=== PATIENT | male | born 1945 | race Caucasian/White ===

== ENCOUNTER 2017-08-23 07:26 | Day surgery (SDC) | payer MEDICARE, BC ==
[~2017-08-23 07:26] MED LIST: Metoclopramide 10 MG/2 ML SDV IV PRN; Sodium Chloride 0.9% 10 ML Syringe FLUSH PRN
[2017-08-23] MEDS ORDERED: Sodium Chloride 0.9% 1,000 ML IV SCH (08:00)
[2017-08-23] MEDS ORDERED: Propofol 200 MG/20 ML SDV ONE (09:15)
--- NOTE | 2017-08-23 16:06 | OR ---
DATE OF OPERATION: 08/23/2017 PREOPERATIVE DIAGNOSIS: Surveillance colonoscopy, prior history of polyps. POSTOPERATIVE DIAGNOSIS: Normal colonoscopy. OPERATION: Surveillance colonoscopy, increased risk due to family history and history of polyps. COMPLICATIONS: None. DRAINS: None. SPECIMENS: None. ESTIMATED BLOOD LOSS: Zero. ANESTHESIA: General propofol anesthesia. INDICATION: Mr. Lyle is a 72-year-old gentleman who is here for a surveillance colonoscopy. His previous being approximately 5 years ago. He does have a history of polyps and an increased family history of colon cancer. He is considered high risk. The above-mentioned procedure was explained. The risks, benefits, complications were explained. The patient understood and agreed, and was brought to the operating room. DESCRIPTION OF PROCEDURE: The patient was brought to the operating room and placed in a left lateral decubitus position on the operating room table. Satisfactory general propofol anesthesia was administered. We began by performing a rectal examination, which was within normal limits. However, there were some external skin tags that were quite small suggestive of previous external hemorrhoids. Next, the endoscope was placed by finger introduction into the rectum and subsequently advanced to the level of the cecum. The cecum was identified by the appendiceal orifice, the ileocecal valve, the terminal ileum, and the cecal strap. Next, careful evaluation of mucosa was performed on withdrawal. There were no polyps, no telangiectasias, no neoplastic growths or diverticula. I then performed a retroflexion maneuver within the rectum, which revealed no significant findings. The colon was then decompressed and the endoscope was withdrawn. The patient tolerated the procedure well. There were no complications. Instrument count was correct. The patient was awoken in the OR and taken to the PACU for recovery. JOHANNA/CHAYA /[id number]
== END 2017-08-23 10:25 | disposition home or self-care (01) ==
LOC: LB.SDS 07:26
PROVIDERS: ATTEND Surgery
DX: Z12.11 Encounter for screening for malignant neoplasm of colon (principal); Z86.010 Personal history of colon polyps; I10 Essential (primary) hypertension; E78.5 Hyperlipidemia, unspecified; E11.9 Type 2 diabetes mellitus without complications; E03.9 Hypothyroidism, unspecified; Z88.1 Allergy status to other antibiotic agents; Z79.84 Long term (current) use of oral hypoglycemic drugs; Z79.899 Other long term (current) drug therapy; K64.4 Residual hemorrhoidal skin tags
CPT/HCPCS: 82962; G0105; J2704; J7040

== ENCOUNTER 2023-03-24 07:30 | Emergency (ER) | payer MEDICARE, BC ==
[2023-03-24 08:13] LABS: BASOPHILS ABSOLUTE AUTO 0.05 K/uL (0.02-0.10); BASOPHILS PERCENT AUTO 0.6 % (0.0-0.5); EOSINOPHILS ABSOLUTE AUTO 0.19 K/uL (0.04-0.40); EOSINOPHILS PERCENT AUTO 2.2 % (1.0-5.0); HEMATOCRIT 48.7 % (40.0-54.0); HEMOGLOBIN 17.1 g/dL (13.0-18.0); LYMPHOCYTES ABSOLUTE AUTO 1.76 K/uL (1.50-4.00); LYMPHOCYTES PERCENT AUTO 20.1 % (20.0-40.0); MEAN CORPUSCULAR HEMOGLOBIN 29.9 pg (27.0-32.0); MEAN CORPUSCULAR HGB CONC 35.1 g/dL (31.0-35.0); MEAN CORPUSCULAR VOLUME 85 fL (76-96); MEAN PLATELET VOLUME 11.5 fL (6.0-10.0); MONOCYTES ABSOLUTE AUTO 0.64 K/uL (0.20-0.80); MONOCYTES PERCENT AUTO 7.3 % (3.0-10.0); NEUTROPHILS ABSOLUTE AUTO 6.11 K/uL (2.00-7.50); NEUTROPHILS PERCENT AUTO 69.8 % (45.0-70.0); PLATELET COUNT,PLT 131 K/uL (150-400); RED BLOOD CELL COUNT 5.72 M/uL (4.50-6.50); WHITE BLOOD CELL COUNT,WBC 8.8 K/uL (4.0-11.0)
[2023-03-24 08:32] LABS: ANION GAP 12.3 mmol/L (5.0-15.0); BLOOD UREA NITROGEN,BUN 36 mg/dL (8-26); BUN/CREATININE RATIO 25.5 (6-25); CALCIUM 9.3 mg/dL (8.5-10.1); CARBON DIOXIDE,CO2 28.9 mmol/L (21.0-32.0); CHLORIDE,CL 105 mmol/L (98-107); CREATININE 1.41 mg/dL (0.70-1.30); ESTIMATED GFR 51 mL/min (>60); GLUCOSE RANDOM 214 mg/dL (74-100); POTASSIUM,K 4.2 mmol/L (3.5-5.1); SODIUM,NA 142 mmol/L (136-145)
[2023-03-24 08:51] LABS: MAGNESIUM 1.8 mg/dL (1.8-2.4); PHOSPHORUS 3.7 mg/dL (2.5-4.9); TSH ULTRASENSITIVE 0.171 uIU/mL (0.358-3.740)
[2023-03-24] MEDS: Metoprolol Tartrate 25 MG Tab PO ONE (09:01)
[2023-03-24] MEDS: Sodium Chloride 0.9% 1,000 ML IV SCH (11:16)
[2023-03-27 04:09] LABS: T3 UPTAKE 35 % (24-39)
[2023-03-27] MEDS: Metoprolol Tartrate 25 MG Tab ONE (09:12)
== END 2023-03-24 10:46 | disposition home or self-care (01) ==
LOC: LB.ED 07:37
DX: I48.91 Unspecified atrial fibrillation (principal); E78.00 Pure hypercholesterolemia, unspecified; I10 Essential (primary) hypertension; E11.9 Type 2 diabetes mellitus without complications; E03.9 Hypothyroidism, unspecified; Z88.1 Allergy status to other antibiotic agents; Z79.899 Other long term (current) drug therapy
CPT/HCPCS: 36415; 80048; 83735; 84100; 84443; 84479; 84484; 85025; 96360; 96361; 99284-25; A9270-GY; J7030

== ENCOUNTER 2024-09-19 20:32 | Inpatient (IN) | payer MEDICARE, BC ==
[2024-09-19] MEDS: Albuterol/Ipratropium 3.0-0.5 MG/3 ML Neb Soln NEB SCH (21:20)
[2024-09-19 21:53] LABS: BASOPHILS ABSOLUTE AUTO 0.02 K/uL (0.02-0.10); BASOPHILS PERCENT AUTO 0.1 % (0.0-0.5); HEMATOCRIT 42.7 % (40.0-54.0); HEMOGLOBIN 14.5 g/dL (13.0-18.0); LYMPHOCYTES ABSOLUTE AUTO 0.79 K/uL (1.50-4.00); LYMPHOCYTES PERCENT AUTO 5.8 % (20.0-40.0); MEAN CORPUSCULAR HEMOGLOBIN 29.5 pg (27.0-32.0); MEAN CORPUSCULAR VOLUME 87 fL (76-96); MONOCYTES ABSOLUTE AUTO 0.83 K/uL (0.20-0.80); MONOCYTES PERCENT AUTO 6.1 % (3.0-10.0); NEUTROPHILS ABSOLUTE AUTO 12.05 K/uL (2.00-7.50); PLATELET COUNT,PLT 111 K/uL (150-400); RED BLOOD CELL COUNT 4.91 M/uL (4.50-6.50); RED CELL DISTRIBUTION WIDTH 13.7 % (11.0-16.0); WHITE BLOOD CELL COUNT,WBC 13.7 K/uL (4.0-11.0)
[2024-09-19 22:24] LABS: A/G RATIO 0.8 (0.8-2.0); ALBUMIN 3.1 g/dL (3.4-5.0); ANION GAP 20.6 mmol/L (5.0-15.0); BILIRUBIN TOTAL 1.3 mg/dL (0.0-1.0); BUN/CREATININE RATIO 12.7 (6-25); CALCIUM 8.7 mg/dL (8.5-10.1); CARBON DIOXIDE,CO2 22.1 mmol/L (21.0-32.0); CREATININE 1.57 mg/dL (0.70-1.30); EST CRCL DRUG DOSING (CG) 36.91 mL/min; POTASSIUM,K 3.7 mmol/L (3.5-5.1); PROTEIN TOTAL,TP 7.1 g/dL (6.4-8.2)
[2024-09-19] MEDS: Acetaminophen 500 MG Tab PO PRN (23:09)
[2024-09-19] MEDS: Levofloxacin/Dextrose 5%-Water 750 MG in Levofloxacin/Dextrose 5%-Water 150 ML IV SCH (23:11)
[2024-09-19] MEDS: Levofloxacin/Dextrose 5%-Water 150 ML IV ONE (23:15)
[2024-09-19] MEDS: Acetaminophen 500 MG Tab ONE (23:24)
[2024-09-19 23:29] LABS: INFLUENZA A NAA NEGATIVE (NEGATIVE); INFLUENZA B NAA NEGATIVE (NEGATIVE); RESPIRATORY SYNCYTIAL VIR NAA NEGATIVE (NEGATIVE)
[2024-09-19 23:32] LABS: CORONAVIRUS COVID-19 NAA NEGATIVE (NEGATIVE)
[2024-09-20] MEDS: Sodium Chloride 0.9% 1,000 ML IV SCH
[2024-09-20] MEDS: Albuterol/Ipratropium 3.0-0.5 MG/3 ML Neb Soln NEB PRN (00:51)
[2024-09-20] MEDS: Sodium Chloride 0.9% 500 ML IV ONE (03:35)
[2024-09-20] MEDS: methylPREDNISolone Sodium Succinate 125 MG/2 ML SDV IVPUSH ONE (05:07)
[2024-09-20] MEDS: NIFEdipine 30 MG Tab.ER PO SCH (07:45)
[2024-09-20] MEDS: Aspirin 81 MG Tab.Chew PO SCH (07:45)
[2024-09-20] MEDS: metFORMIN 500 MG Tab PO SCH (07:46)
[2024-09-20] MEDS: atorvaSTATin 10 MG Tab PO SCH (07:46)
[2024-09-20] MEDS: glipiZIDE 5 MG Tab PO SCH (07:55)
[2024-09-20 08:20] LABS: BASOPHILS ABSOLUTE AUTO 0.01 K/uL (0.02-0.10); BASOPHILS PERCENT AUTO 0.1 % (0.0-0.5); HEMATOCRIT 42.1 % (40.0-54.0); HEMOGLOBIN 14.5 g/dL (13.0-18.0); LYMPHOCYTES ABSOLUTE AUTO 0.39 K/uL (1.50-4.00); LYMPHOCYTES PERCENT AUTO 4.1 % (20.0-40.0); MEAN CORPUSCULAR HEMOGLOBIN 29.6 pg (27.0-32.0); MEAN CORPUSCULAR HGB CONC 34.4 g/dL (31.0-35.0); MEAN CORPUSCULAR VOLUME 86 fL (76-96); MONOCYTES ABSOLUTE AUTO 0.26 K/uL (0.20-0.80); MONOCYTES PERCENT AUTO 2.8 % (3.0-10.0); NEUTROPHILS ABSOLUTE AUTO 8.75 K/uL (2.00-7.50); PLATELET COUNT,PLT 103 K/uL (150-400); RED CELL DISTRIBUTION WIDTH 13.5 % (11.0-16.0); WHITE BLOOD CELL COUNT,WBC 9.4 K/uL (4.0-11.0)
[2024-09-20 08:42] LABS: ALBUMIN 2.6 g/dL (3.4-5.0); ANION GAP 21.6 mmol/L (5.0-15.0); BILIRUBIN TOTAL 1.3 mg/dL (0.0-1.0); BUN/CREATININE RATIO 11.7 (6-25); CALCIUM 8.3 mg/dL (8.5-10.1); CARBON DIOXIDE,CO2 19.9 mmol/L (21.0-32.0); CREATININE 1.63 mg/dL (0.70-1.30); EST CRCL DRUG DOSING (CG) 35.55 mL/min; POTASSIUM,K 3.5 mmol/L (3.5-5.1); PROTEIN TOTAL,TP 6.6 g/dL (6.4-8.2)
[2024-09-20 08:44] LABS: A/G RATIO 0.7 (0.8-2.0)
== END 2024-09-20 11:21 | DRG 871 ==
LOC: LB.ED 20:32 → LB.MS 23:00
PROVIDERS: ADMIT Surgery; ATTEND Surgery
DX: A41.9 Sepsis, unspecified organism (principal); J18.9 Pneumonia, unspecified organism; E87.20 Acidosis, unspecified; R09.02 Hypoxemia; R60.0 Localized edema; I10 Essential (primary) hypertension; E11.9 Type 2 diabetes mellitus without complications; E03.9 Hypothyroidism, unspecified; Z79.84 Long term (current) use of oral hypoglycemic drugs; Z79.82 Long term (current) use of aspirin; Z88.8 Allergy status to other drugs, medicaments and biological substances; Z88.1 Allergy status to other antibiotic agents; Z79.899 Other long term (current) drug therapy
CPT/HCPCS: 0241U; 36415; 71046; 80053; 82947; 83605; 84145; 85025; 87040; 94640; 99222; 99238; A0425; A0428; A9270-GY; J1956; J2919; J7030; J7040; J7620; U0002

== ENCOUNTER 2025-04-20 14:42 | Emergency (ER) | payer MEDICARE, BC ==
[2025-04-20] MEDS ORDERED: Sodium Chloride 0.9% 10 ML Syringe FLUSH PRN (14:46)
[2025-04-20] MEDS: Sodium Chloride 0.9% 1,000 ML IV SCH (14:54)
[2025-04-20 15:06] LABS: HEMATOCRIT 43.4 % (40.0-54.0); HEMOGLOBIN 14.6 g/dL (13.0-18.0); MEAN CORPUSCULAR HEMOGLOBIN 29.4 pg (27.0-32.0); MEAN CORPUSCULAR HGB CONC 33.6 g/dL (31.0-35.0); MEAN PLATELET VOLUME 10.1 fL (6.0-10.0); RED BLOOD CELL COUNT 4.96 M/uL (4.50-6.50); RED CELL DISTRIBUTION WIDTH 14.7 % (11.0-16.0); WHITE BLOOD CELL COUNT,WBC 4.7 K/uL (4.0-11.0)
[2025-04-20 15:30] LABS: ANION GAP 15.8 mmol/L (5.0-15.0); BUN/CREATININE RATIO 22.5 (6-25); CALCIUM 8.4 mg/dL (8.5-10.1); CARBON DIOXIDE,CO2 24.5 mmol/L (21.0-32.0); CREATININE 1.91 mg/dL (0.70-1.30); EST CRCL DRUG DOSING (CG) 29.32 mL/min; MAGNESIUM 2.2 mg/dL (1.8-2.4); POTASSIUM,K 5.3 mmol/L (3.5-5.1)
[2025-04-20] MEDS: Calcium Gluconate 10% 1 GM/10 ML SDV IVPUSH ONE (15:43)
[2025-04-20] MEDS: Sodium Polystyrene Sulfonate 15 GM/60 ML Susp 60 ML Bot PO ONE (15:43)
[2025-04-20] MEDS: Albuterol 0.083% 2.5 MG/3 ML Neb Soln NEB ONE (15:43)
== END 2025-04-20 16:55 | disposition home or self-care (01) ==
LOC: LB.ED 14:42
DX: E87.5 Hyperkalemia (principal); E83.41 Hypermagnesemia; N17.9 Acute kidney failure, unspecified; I12.9 Hypertensive chronic kidney disease with stage 1 through stage 4 chronic kidney disease, or unspecified chronic kidney disease; N18.4 Chronic kidney disease, stage 4 (severe); I48.91 Unspecified atrial fibrillation; E11.22 Type 2 diabetes mellitus with diabetic chronic kidney disease; E78.00 Pure hypercholesterolemia, unspecified; E03.9 Hypothyroidism, unspecified; Z88.1 Allergy status to other antibiotic agents; Z79.82 Long term (current) use of aspirin; Z79.899 Other long term (current) drug therapy; Z79.84 Long term (current) use of oral hypoglycemic drugs; Z79.4 Long term (current) use of insulin
CPT/HCPCS: 36415; 71045; 80048; 83735; 84484; 85027; 93005; 94640; 96361; 96374; 99284-25; A9270-GY; J0612; J7030

== ENCOUNTER 2025-04-26 19:04 | Observation (INO) | payer MEDICARE, BC ==
[2025-04-26 19:51] LABS: BASOPHILS ABSOLUTE AUTO 0.02 K/uL (0.02-0.10); BASOPHILS PERCENT AUTO 0.2 % (0.0-0.5); HEMATOCRIT 43.5 % (40.0-54.0); LYMPHOCYTES ABSOLUTE AUTO 1.02 K/uL (1.50-4.00); LYMPHOCYTES PERCENT AUTO 10.5 % (20.0-40.0); MEAN CORPUSCULAR HEMOGLOBIN 29.4 pg (27.0-32.0); MEAN CORPUSCULAR HGB CONC 34.5 g/dL (31.0-35.0); MEAN CORPUSCULAR VOLUME 85 fL (76-96); MEAN PLATELET VOLUME 11.1 fL (6.0-10.0); MONOCYTES ABSOLUTE AUTO 0.41 K/uL (0.20-0.80); MONOCYTES PERCENT AUTO 4.2 % (3.0-10.0); NEUTROPHILS ABSOLUTE AUTO 8.24 K/uL (2.00-7.50); NEUTROPHILS PERCENT AUTO 85.1 % (45.0-70.0); PLATELET COUNT,PLT 86 K/uL (150-400); RED CELL DISTRIBUTION WIDTH 14.7 % (11.0-16.0); WHITE BLOOD CELL COUNT,WBC 9.7 K/uL (4.0-11.0)
[2025-04-26 19:58] LABS: APPEARANCE,URINE CLEAR (CLEAR); BILIRUBIN,URINE NEGATIVE (NEGATIVE); COLOR,URINE YELLOW; GLUCOSE,URINE >=1000 mg/dL (NEGATIVE); KETONES,URINE NEGATIVE (NEGATIVE); LEUKOCYTE ESTERASE,URINE NEGATIVE (NEGATIVE); NITRITE,URINE NEGATIVE (NEGATIVE); OCCULT BLOOD,URINE LARGE (NEGATIVE); PH,URINE 5.5 (5.0-8.0); PROTEIN,URINE 30 mg/dL (NEGATIVE); UROBILINOGEN,URINE 0.2 E.U./dL (0.2-1.0)
[2025-04-26 20:05] LABS: RBC,URINE 50-75 /HPF; SQUAMOUS EPITHELIAL CELLS,UR OCCASIONAL /HPF
[2025-04-26 20:11] LABS: C-REACTIVE PROTEIN 140.8 mg/L (<5.0); MAGNESIUM 2.8 mg/dL (1.8-2.4); TROPONIN I HIGH SENSITIVITY 25.8 pg/ml (<=60.4)
[2025-04-26 20:14] LABS: A/G RATIO 0.9 (0.8-2.0); ALANINE AMINOTRANSFERASE,ALT 74 U/L (12-78); ALBUMIN 3.4 g/dL (3.4-5.0); ALKALINE PHOSPHATASE 156 U/L (46-116); ANION GAP 16.2 mmol/L (5.0-15.0); ASPARTATE AMNIOTRANSFERASE,AST 53 U/L (15-37); BILIRUBIN TOTAL 1.1 mg/dL (0.0-1.0); BUN/CREATININE RATIO 27.3 (6-25); CALCIUM 8.1 mg/dL (8.5-10.1); CARBON DIOXIDE,CO2 25.4 mmol/L (21.0-32.0); CHLORIDE,CL 96 mmol/L (98-107); CREATININE 2.16 mg/dL (0.70-1.30); ESTIMATED GFR 30 mL/min (>60); GLUCOSE RANDOM 228 mg/dL (74-100); POTASSIUM,K 5.6 mmol/L (3.5-5.1); SODIUM,NA 132 mmol/L (136-145); TSH ULTRASENSITIVE 1.762 uIU/mL (0.358-3.740)
[2025-04-26 20:20] LABS: BLOOD UREA NITROGEN,BUN 59 mg/dL (8-26)
[2025-04-26] MEDS ORDERED: 50% Dextrose in Water 50 ML Syringe IVPUSH PRN (20:42)
[2025-04-26] MEDS ORDERED: Glucagon,Human Recombinant 1 MG Vial IM PRN (20:42)
[2025-04-26] MEDS: Sodium Chloride 0.9% 1,000 ML IV ONE (20:45)
[2025-04-26] MEDS: Sodium Polystyrene Sulfonate 15 GM/60 ML Susp 60 ML Bot PO SCH (21:17)
[2025-04-26] MEDS: ATORVASTATIN 10 MG PO SCH (22:44)
[2025-04-26] MEDS: Insulin Glargine,Human Rec. Analog 100 Units/ML 3 ML Pen SUBCUT SCH (22:44)
[2025-04-26] MEDS: GLIPIZIDE 5 MG PO SCH (22:46)
[2025-04-26] MEDS: Sodium Chloride 0.9% 1,000 ML IV SCH (23:01)
[2025-04-26] MEDS ORDERED: Sodium Chloride 0.9% 10 ML Syringe FLUSH PRN (23:32)
[2025-04-27] MEDS: Spironolactone 25 MG Tab PO SCH (07:33)
[2025-04-27] MEDS: Aspirin 81 MG Tab.EC PO SCH (07:33)
[2025-04-27] MEDS: Enoxaparin 40 MG/0.4 ML Syringe SUBCUT SCH (07:34)
[2025-04-27] MEDS: BUMETANIDE 1 MG PO SCH (07:34)
[2025-04-27] MEDS ORDERED: glipiZIDE 5 MG Tab PO SCH (08:00)
[2025-04-27] MEDS ORDERED: THYROID PORK 30 MG PO SCH (08:00)
[2025-04-27] MEDS ORDERED: Bumetanide 1 MG Tab PO SCH (08:00)
[2025-04-27] MEDS ORDERED: Enoxaparin 40 MG/0.4 ML Syringe SUBCUT SCH (08:00)
[2025-04-27] MEDS ORDERED: VITAMIN B COMPLEX PO SCH (08:00)
[2025-04-27] MEDS ORDERED: Non-Formulary Medication 1 Each (Vit A/Vit C/Vit E/Zinc/Copper [Preservision Areds Softgel PO SCH (08:00)
[2025-04-27 08:55] LABS: BASOPHILS ABSOLUTE AUTO 0.01 K/uL (0.02-0.10); BASOPHILS PERCENT AUTO 0.1 % (0.0-0.5); HEMOGLOBIN 12.7 g/dL (13.0-18.0); LYMPHOCYTES ABSOLUTE AUTO 0.99 K/uL (1.50-4.00); LYMPHOCYTES PERCENT AUTO 11.3 % (20.0-40.0); MEAN CORPUSCULAR HEMOGLOBIN 29.4 pg (27.0-32.0); MEAN CORPUSCULAR HGB CONC 34.3 g/dL (31.0-35.0); MEAN CORPUSCULAR VOLUME 86 fL (76-96); MEAN PLATELET VOLUME 11.3 fL (6.0-10.0); MONOCYTES ABSOLUTE AUTO 0.39 K/uL (0.20-0.80); MONOCYTES PERCENT AUTO 4.5 % (3.0-10.0); NEUTROPHILS ABSOLUTE AUTO 7.36 K/uL (2.00-7.50); NEUTROPHILS PERCENT AUTO 84.1 % (45.0-70.0); PLATELET COUNT,PLT 79 K/uL (150-400); RED BLOOD CELL COUNT 4.32 M/uL (4.50-6.50); RED CELL DISTRIBUTION WIDTH 14.6 % (11.0-16.0); WHITE BLOOD CELL COUNT,WBC 8.8 K/uL (4.0-11.0)
[2025-04-27 09:21] LABS: ANION GAP 17.1 mmol/L (5.0-15.0); BUN/CREATININE RATIO 24.8 (6-25); CALCIUM 7.2 mg/dL (8.5-10.1); CARBON DIOXIDE,CO2 20.9 mmol/L (21.0-32.0); CREATININE 2.02 mg/dL (0.70-1.30); EST CRCL DRUG DOSING (CG) 27.72 mL/min; MAGNESIUM 2.3 mg/dL (1.8-2.4)
[2025-04-27] MEDS: Acetaminophen 325 MG Tab PO PRN (12:38)
[2025-04-27] MEDS: NP THYROID 60 MG PO SCH (12:49)
[2025-04-27] MEDS: Cholecalciferol (Vitamin D3) 10 MCG Tab PO SCH (12:49)
[2025-04-27] MEDS: Piperacillin/Tazobactam 3.375 GM in Sodium Chloride 0.9% 100 ML IV SCH (14:48)
[2025-04-27] MEDS: Pantoprazole 40 MG Vial IVPUSH ONE (14:52)
[2025-04-27] MEDS: Doxycycline 100 MG in Sodium Chloride 0.9% 100 ML IV SCH (15:54)
[2025-04-27 17:02] VITALS: BP 158/73; PULSE 103
[2025-04-27] MEDS: metroNIDAZOLE/Normal Saline 500 MG in Premix Bag 1 BAG IV ONE (17:02)
[2025-04-27] MEDS ORDERED: atorvaSTATin 10 MG Tab PO SCH (20:00)
[2025-04-27] MEDS ORDERED: [UNRECOGNIZED DRUG - OTHER] PO SCH (20:00)
[2025-04-28] MEDS: VITAMIN B COMPLEX PO SCH (07:42)
== END 2025-04-27 17:37 ==
LOC: LB.ED 19:04 → LB.MS 20:41 → UNDOADMOB 21:00
PROVIDERS: ADMIT Physician Assistant; ATTEND Physician Assistant
DX: A41.9 Sepsis, unspecified organism (principal); N17.9 Acute kidney failure, unspecified; E86.0 Dehydration; I12.9 Hypertensive chronic kidney disease with stage 1 through stage 4 chronic kidney disease, or unspecified chronic kidney disease; E11.22 Type 2 diabetes mellitus with diabetic chronic kidney disease; N18.4 Chronic kidney disease, stage 4 (severe); E78.00 Pure hypercholesterolemia, unspecified; Z79.82 Long term (current) use of aspirin; Z79.899 Other long term (current) drug therapy
CPT/HCPCS: 36415; 71045; 74176; 80048; 80053; 81001; 82947; 83605; 83735; 84443; 84484; 85025; 86140; 87040; 93005; 93010; 96361; 96365; 96366; 96367; 96368; 96372; 96376; 99221; 99238; 99285; A9270-GY; G0378; J1650; J1836; J2470; J2543; J3490; J7030